=== PATIENT | female | born 1955 | race Caucasian/White ===

== ENCOUNTER 2017-02-02 22:46 | Emergency (ER) | payer BC, MEDICARE ==
[2017-02-02] MEDS ORDERED: PANTOPRAZOLE 40 MG/10 ML VIAL IVP STA (23:07)
[2017-02-02] MEDS ORDERED: ONDANSETRON 4 MG/2 ML VIAL IVP STA (23:07)
[2017-02-02 23:46] LABS: Basophils # (A) 0.1 k/uL (0-0.2); Basophils % (A) 1 %; CH 32.2; CHCM 34.9; Eosinophils # (A) 0.1 k/uL (0-0.7); Eosinophils % (A) 1 %; HCT 39.3 % (34.0-46.0); HDW 2.39; HGB 13.6 gm/dL (11.4-16.0); Luc # (Auto) 0.32; Luc % (Auto) 3; Lymphocytes # (A) 2.2 k/uL (1.0-4.8); Lymphocytes % (A) 21 %; MCH 31.9 pg (25.0-35.0); MCHC 34.5 g/dL (31.0-37.0); MCV 92.5 fL (80.0-100.0); Mean Platelet Volume 7.3; Monocytes # (A) 0.6 k/uL (0-1.0); Monocytes % (A) 5 %; Neutrophils # (A) 7.5 k/uL (1.3-7.7); Neutrophils % (A) 69 %; RBC 4.25 m/uL (3.80-5.40); RDW 12.4 % (11.5-15.5); WBC 10.8 k/uL (3.8-10.6)
[2017-02-02] MEDS ORDERED: HYDROmorphone 1 MG/ML 1 ML SYRINGE IVP STA (23:49)
[2017-02-02 23:51] LABS: Appearance,Urine Cloudy (Clear); Bacteria,Urine Rare /hpf; Bilirubin,Urine Negative (Negative); Glucose,Urine (UA) Negative (Negative); Ketones,Urine Negative (Negative); Leukocyte Esterase,Urine Large (Negative); Mucus,Urine Rare /hpf; Nitrite,Urine Negative (Negative); PH, Urine 5.5 (5.0-8.0); Particle Count 9929; Protein,Urine Trace (Negative); RBC,Urine 8 /hpf (0-5); Squamous Epithelial Cell,Urine 9 /hpf (0-4); UA Billing (MACRO vs. MICRO) MICRO; Urobilinogen,Urine <2.0 mg/dL (<2.0); WBC,Urine 14 /hpf (0-5)
[2017-02-02 23:56] LABS: ALT 36 U/L (9-52); AST 25 U/L (14-36); Alkaline Phosphatase 79 U/L (38-126); Amylase 128 U/L (30-110); Anion Gap 13 mmol/L; Blood Urea Nitrogen 15 mg/dL (7-17); Calcium 9.7 mg/dL (8.4-10.2); Carbon Dioxide 21 mmol/L (22-30); Chloride 105 mmol/L (98-107); Glucose 155 mg/dL (74-99); Non-African American GFR(MDRD) >60 (>60 ml/min/1.73 sqM); Potassium 3.3 mmol/L (3.5-5.1); Sodium 139 mmol/L (137-145); Total Bilirubin 0.5 mg/dL (0.2-1.3); Total Protein 6.8 g/dL (6.3-8.2)
[2017-02-03] MEDS ORDERED: METOCLOPRAMIDE 5 MG/ML 2 ML VIAL IVP STA (00:09)
[2017-02-03] MEDS ORDERED: diphenhydrAMINE 50 MG/ML 1 ML VIAL IVP STA (00:09)
[2017-02-03] MEDS ORDERED: IOHEXOL 350 MG/ML 25 ML BOTTLE (ORAL USE) PO PRN (00:29)
[2017-02-03] MEDS ORDERED: RX INFO: IV CONTRAST WAS GIVEN 1 EACH MISC MISCELLANE PRN (00:29)
--- NOTE | 2017-02-03 00:33 | ED ---
Abdominal Pain HPI - General Chief Complaint: Abdominal Pain Stated Complaint: NVD-Post Op Time Seen by Provider: 02/02/17 23:02 Source: patient, RN notes reviewed, old records reviewed Mode of arrival: wheelchair Limitations: no limitations - History of Present Illness Initial Comments: This is a 61-year-old female presenting to the emergency department with chief complaint of epigastric abdominal pain. Patient reports that she ate today feels like she to much and that is what caused her pain. She reports that she' s had vomiting since 2:30 this afternoon and a few episodes of diarrhea. She reports that she had the hiatal hernia surgery on January 21 by a physician in [facility]. Patient reports that she was healing well afterwards. Patient states that the pain will occasionally radiate to her back. Denies any recent fever or chills. Patient states that the pain is unbearable and radiates from her epigastric region to her lower back. - Related Data Home Medications Medication Instructions Recorded Confirmed Escitalopram Oxalate [Lexapro] 20 mg PO DAILY 02/02/17 02/02/17 Levothyroxine Sodium [Synthroid] 75 mcg PO DAILY 02/02/17 02/02/17 Omeprazole [PriLOSEC] 20 mg PO DAILY 02/02/17 02/02/17 Triamterene-Hctz 37.5-25Mg 1 cap PO DAILY 02/02/17 02/02/17 [Dyazide 37.5-25 Capsule] Previous Rx's Medication Instructions Recorded Nitrofurantoin Monohyd/M-Cryst 100 mg PO Q12HR #14 cap 02/03/17 [Macrobid] Ondansetron Odt [Zofran Odt] 4 mg PO Q8HR PRN #12 tab 02/03/17 Allergies Allergy/AdvReac Type Severity Reaction Status Date / Time codeine AdvReac Nausea & Verified 02/02/17 23:10 Vomiting Review of Systems ROS Statement: Those systems with pertinent positive or pertinent negative responses have been documented in the HPI. ROS Other: All systems not noted in ROS Statement are negative. Past Medical History Past Medical History: Hypertension Additional Past Medical History / Comment(s): hypothyroidism. History of Any Multi-Drug Resistant Organisms: None Reported Additional Past Surgical History / Comment(s): hiatal hernia, Past Psychological History: Anxiety Smoking Status: Former smoker Past Alcohol Use History: None Reported Past Drug Use History: Marijuana General Exam - General Exam Comments Initial Comments: This is a 61-year-old female. Patient is actively vomiting and dry heaving. Limitations: no limitations General appearance: alert, in no apparent distress Head exam: Present: atraumatic, normocephalic, normal inspection Eye exam: Present: normal appearance, PERRL, EOMI. Absent: scleral icterus, conjunctival injection, periorbital swelling ENT exam: Present: normal exam, mucous membranes moist Neck exam: Present: normal inspection. Absent: tenderness, meningismus, lymphadenopathy Respiratory exam: Present: normal lung sounds bilaterally. Absent: respiratory distress, wheezes, rales, rhonchi, stridor Cardiovascular Exam: Present: regular rate, normal rhythm, normal heart sounds. Absent: systolic murmur, diastolic murmur, rubs, gallop, clicks GI/Abdominal exam: Present: soft, tenderness ( is epigastric tenderness.), normal bowel sounds. Absent: distended, guarding, rebound, rigid Extremities exam: Present: normal inspection, full ROM, normal capillary refill. Absent: tenderness, pedal edema, joint swelling, calf tenderness Back exam: Present: normal inspection Neurological exam: Present: alert, oriented X3, CN II-XII intact Psychiatric exam: Present: normal affect, normal mood Skin exam: Present: warm, dry, intact, normal color. Absent: rash Course Vital Signs 02/02/17 02/03/17 02/03/17 22:56 01:41 02:33 Temperature 98.9 F 97.7 F 97.1 F L Pulse Rate 73 63 61 Respiratory 16 18 18 Rate Blood Pressure 183/80 135/65 127/62 O2 Sat by Pulse 97 95 95 Oximetry 02/03/17 03:25 Temperature 97.2 F L Pulse Rate 95 Respiratory 18 Rate Blood Pressure 127/61 O2 Sat by Pulse 96 Oximetry Medical Decision Making - Medical Decision Making This is a 61-year-old female presenting to the emergency department with chief complaint of epigastric abdominal pain. Patient reports that she ate today feels like she to much and that is what caused her pain. She reports that she' s had vomiting since 2:30 this afternoon and a few episodes of diarrhea. She reports that she had the hiatal hernia surgery on January 21 by a physician in [facility]. Patient reports that she was healing well afterwards. Patient states that the pain will occasionally radiate to her back. Denies any recent fever or chills. Patient states that the pain is unbearable and radiates from her epigastric region to her lower back. Patient responded well to nausea medication and pain medication. Lab work shows mild UTI with WBC, and RBC, and leukocyte esterase. Culture will be obtained, patient started on macrobid. PAtient Xray shows no acute process. Patient labs show mild hypokalemia, patient Given KCL replacement. PAtient CT Brain shows dilated stomack entering doudenum. There is constrast throughout entire bowel, PAtient did tolerate PO constrast. No sign of perforation, or abnomrmal surgical procedure. pPatient CT and case discussed with , CT possible SMA syndrome. Patient was reevaluated and resting comfortably, comitnig subsided. PAtient reports that she wants to go home. Patient will be dsicharged with Zofran and advised to follow up with PCP and surgeon form [place] if symptoms perist. PAtient agrees to treatment plan and will comply. - Lab Data Result diagrams: 02/02/17 23:32 02/02/17 23:32 Lab Results 02/02/17 02/02/17 02/02/17 Range/Units 23:32 23:32 23:32 WBC 10.8 H (3.8-10.6) k/uL RBC 4.25 (3.80-5.40) m/uL Hgb 13.6 (11.4-16.0) gm/dL Hct 39.3 (34.0-46.0) % MCV 92.5 (80.0-100.0) fL MCH 31.9 (25.0-35.0) pg MCHC 34.5 (31.0-37.0) g/dL RDW 12.4 (11.5-15.5) % Plt Count 259 (150-450) k/uL Neutrophils % 69 % Lymphocytes % 21 % Monocytes % 5 % Eosinophils % 1 % Basophils % 1 % Neutrophils # 7.5 (1.3-7.7) k/uL Lymphocytes # 2.2 (1.0-4.8) k/uL Monocytes # 0.6 (0-1.0) k/uL Eosinophils # 0.1 (0-0.7) k/uL Basophils # 0.1 (0-0.2) k/uL Sodium 139 (137-145) mmol/L Potassium 3.3 L (3.5-5.1) mmol/L Chloride 105 (98-107) mmol/L Carbon Dioxide 21 L (22-30) mmol/L Anion Gap 13 mmol/L BUN 15 (7-17) mg/dL Creatinine 0.80 (0.52-1.04) mg/dL Est GFR (MDRD) Af Amer >60 (>60 ml/min/1.73 sqM) Est GFR (MDRD) Non-Af >60 (>60 ml/min/1.73 sqM) Glucose 155 H (74-99) mg/dL Calcium 9.7 (8.4-10.2) mg/dL Total Bilirubin 0.5 (0.2-1.3) mg/dL AST 25 (14-36) U/L ALT 36 (9-52) U/L Alkaline Phosphatase 79 (38-126) U/L Total Protein 6.8 (6.3-8.2) g/dL Albumin 4.2 (3.5-5.0) g/dL Amylase 128 H (30-110) U/L Lipase 488 H (23-300) U/L Urine Color Yellow Urine Appearance Cloudy H (Clear) Urine pH 5.5 (5.0-8.0) Ur Specific [place] 1.020 (1.001-1.035) Urine Protein Trace H (Negative) Urine Glucose (UA) Negative (Negative) Urine Ketones Negative (Negative) Urine Blood Moderate H (Negative) Urine Nitrite Negative (Negative) Urine Bilirubin Negative (Negative) Urine Urobilinogen <2.0 (<2.0) mg/dL Ur Leukocyte Esterase Large H (Negative) Urine RBC 8 H (0-5) /hpf Urine WBC 14 H (0-5) /hpf Ur Squamous Epith Cells 9 H (0-4) /hpf Urine Bacteria Rare H (None) /hpf Urine Mucus Rare H (None) /hpf - Radiology Data Radiology results: report reviewed Dilated Gastric region into duodenum, suggest SMA syndrome. Disposition Clinical Impression: Vomiting, Diarrhea, UTI (urinary tract infection) Disposition: HOME SELF-CARE Condition: Good Instructions: Urinary Tract Infection in Women (ED), Acute Nausea and Vomiting (ED) Additional Instructions: Patient advised to follow-up with her primary care provider. Take nausea medication as directed. Return to the emergency department if any alarming signs or symptoms occur. Prescriptions: Nitrofurantoin Monohyd/M-Cryst [Macrobid] 100 mg PO Q12HR #14 cap Ondansetron Odt [Zofran Odt] 4 mg PO Q8HR PRN #12 tab PRN Reason: Nausea Referrals: Nonstaff,Physician [Primary Care Provider] - 1-2 days Time of Disposition: 03:30
--- NOTE | 2017-02-03 00:45 | XR ---
INDICATION: Abdominal pain COMPARISON: None. FINDINGS: Upright AP views of the abdomen are provided. There is gaseous distention of stomach and several small bowel loops. Gas is visualized in the colon. No evidence of free air. No evidence of acute osseous abnormality. IMPRESSION: Overall bowel gas pattern more suggestive of ileus/enteritis than bowel obstruction. No evidence of free air.
[2017-02-03] MEDS ORDERED: POTASSIUM CHLORIDE ER 10 MEQ TAB.ER.PRT PO STA (01:28)
[2017-02-03 01:41] VITALS: RESP 18
--- NOTE | 2017-02-03 03:14 | CT ---
INDICATION: Abdominal pain at hiatal hernia incision site. TECHNIQUE: Helical CT acquisition of the abdomen and pelvis was performed following the administration of 100 mL Omnipaque 300 IV contrast. Oral contrast was also administered. Limited delayed postcontrast image acquisition through the kidneys was also performed. Sagittal and coronal reformatted images are available. DOSIMETRY: CTDIvol 15.60 mGy; DLP 551.10 mGy-cm. This CT exam was performed using one or more of the following dose reduction techniques: automated exposure control, adjustment of the mA and/or kV according to patient size, and/or use of iterative reconstruction technique. COMPARISON: KUB 02/03/17 FINDINGS: There is bibasilar subsegmental atelectasis. There are postsurgical changes at the gastroesophageal junction. The liver, gallbladder, spleen, pancreas, and adrenal glands are unremarkable. The kidneys enhance symmetrically. There is no hydronephrosis or perinephric stranding. There is aortoiliac atherosclerosis without aneurysm. There is no adenopathy. Contrast has reached the mid small bowel at the time of imaging. There is marked gastric distention. There is mildly dilated proximal small bowel. The ileum is decompressed, but no abrupt transition point is identified. There is disproportionate distention of the stomach and duodenum with narrowing of the duodenum as it crosses between the aorta and SMA, raising the possibility of SMA syndrome. There is gas within the right colon and transverse colon. There is no pneumoperitoneum or free fluid. The appendix is not identified. Status post hysterectomy. Urinary bladder is unremarkable. There are no acute osseous findings. IMPRESSION: 1. Marked gastric and duodenal distention with narrowing of the duodenum as it traverses the aorta-SMA interval, raising the possibility of SMA syndrome. There is mild dilatation of jejunal loops with decompressed ileum but no abrupt transition point to suggest more distal small bowel obstruction. Nonspecific gastroenteritis is a possibility.
[2017-02-03 03:26] VITALS: BP 127/61; PULSE 95; TEMP 97.2
[2017-02-03] MEDS ORDERED: ONDANSETRON 4 MG ODT STARTER PACK 2 TAB BTL PO STA (03:42)
== END 2017-02-03 03:46 | disposition home or self-care (01) ==
LOC: EC 22:46
DX: N39.0 Urinary tract infection, site not specified (principal); R11.10 Vomiting, unspecified; R19.7 Diarrhea, unspecified; R10.13 Epigastric pain; E87.6 Hypokalemia; K31.89 Other diseases of stomach and duodenum; I10 Essential (primary) hypertension; E03.9 Hypothyroidism, unspecified; F41.9 Anxiety disorder, unspecified; Z87.891 Personal history of nicotine dependence; Z79.899 Other long term (current) drug therapy; Z88.5 Allergy status to narcotic agent; Z98.890 Other specified postprocedural states
CPT/HCPCS: 36415; 80053; 82150; 83690; 85025; 81001; 87086; 74000; 74177; 99285; 96374; 96375 ×4; J1200; J2765; J2405; J1170; Q9967; S0119; C9113

== ENCOUNTER 2017-02-04 11:44 | Emergency (ER) | payer MEDICARE ==
[2017-02-04] MEDS ORDERED: HYDROmorphone 1 MG/ML 1 ML SYRINGE IVP STA (12:07)
[2017-02-04] MEDS ORDERED: ONDANSETRON 4 MG/2 ML VIAL IVP STA (12:07)
[2017-02-04] MEDS ORDERED: SODIUM CHLORIDE 0.9% 1,000 ML IV STA (12:07)
--- NOTE | 2017-02-04 12:27 | ED ---
General Adult HPI - General Chief complaint: Abdominal Pain Stated complaint: chest pain,vomiting Time Seen by Provider: 02/04/17 11:53 Source: patient, RN notes reviewed Mode of arrival: ambulatory Limitations: no limitations - History of Present Illness Initial comments: Patient 61-year-old female who presents emergency room today status post hiatal hernia repair 2 weeks, who presents emergency room today with a chief complaint of increased abdominal pain with symptoms of nausea vomiting. She has been she was recently seen just 2 days ago for similar symptoms diagnosed with urinary tract infection. She states that she tried eating eggs this morning so she did take her antibiotic. States it made her feel sick nauseous and she began having vomiting. States had increased pain to the abdomen. Patient currently rates pain 10/10 located in the middle of the abdomen. She denies any other complaints or symptoms at this time. - Related Data Home Medications Medication Instructions Recorded Confirmed Escitalopram Oxalate [Lexapro] 20 mg PO DAILY 02/02/17 02/04/17 Levothyroxine Sodium [Synthroid] 75 mcg PO DAILY 02/02/17 02/04/17 Omeprazole [PriLOSEC] 20 mg PO DAILY 02/02/17 02/04/17 Triamterene-Hctz 37.5-25Mg 1 cap PO DAILY 02/02/17 02/04/17 [Dyazide 37.5-25 Capsule] Allergies Allergy/AdvReac Type Severity Reaction Status Date / Time codeine AdvReac Nausea & Verified 02/04/17 12:06 Vomiting Review of Systems ROS Statement: Those systems with pertinent positive or pertinent negative responses have been documented in the HPI. ROS Other: All systems not noted in ROS Statement are negative. Past Medical History Past Medical History: Hypertension Additional Past Medical History / Comment(s): hypothyroidism. History of Any Multi-Drug Resistant Organisms: None Reported Additional Past Surgical History / Comment(s): hiatal hernia esophagus tightening Past Psychological History: Anxiety Smoking Status: Former smoker Past Alcohol Use History: None Reported Past Drug Use History: Marijuana General Exam - General Exam Comments Initial Comments: General: The patient is awake and alert, in no distress, and does not appear acutely ill. Eye: Pupils are equal, round and reactive to light, extra-ocular movements are intact. No nystagmus. There is normal conjunctiva bilaterally. No signs of icterus. Ears, nose, mouth and throat: There are moist mucous membranes and no oral lesions. Neck: The neck is supple, there is no tenderness or JVD. Cardiovascular: There is a regular rate and rhythm. No murmur, rub or gallop is appreciated. Respiratory: Lungs are clear to auscultation, respirations are non-labored, breath sounds are equal. No wheezes, stridor, rales, or rhonchi. Gastrointestinal: Patient has normal appearance. Normal bowel sounds. Abdomen soft on palpation. Patient does have mild tenderness in the middle of the abdomen above the umbilicus. No rebound tenderness no guarding. No CVA tenderness. Musculoskeletal: Normal ROM, no tenderness. Strength 5/5. Sensation intact. Pulses equal bilaterally 2+. Neurological: A&O x 3. CN II-XII intact, There are no obvious motor or sensory deficits. Coordination appears grossly intact. Speech is normal. Skin: Skin is warm and dry and no rashes or lesions are noted. Psychiatric: Cooperative, appropriate mood & affect, normal judgment. Limitations: no limitations Course Vital Signs 02/04/17 02/04/17 02/04/17 11:46 12:51 14:02 Temperature 99.4 F 99.3 F Pulse Rate 80 68 70 Respiratory 22 16 18 Rate Blood Pressure 209/108 185/91 149/65 O2 Sat by Pulse 98 96 98 Oximetry 02/04/17 14:04 Temperature 98.3 F Pulse Rate 60 Respiratory 16 Rate Blood Pressure 124/56 O2 Sat by Pulse 96 Oximetry Medical Decision Making - Medical Decision Making Case discussed in detail with attending physician Dr. Robles. Patient's previous visit she did have a CT of the abdomen which shows 1. Marked gastric and duodenal distention with narrowing of one, at its transverses the aorta SMA interval, raising the possibility of an some a syndrome. Patient's ultrasound of the upper right quadrant is negative today. Patient's labs reviewed unremarkable. Patient's feeling much better at this time. States feels comfortable being discharged home to follow her surgeon if she is not from the area. States plans on traveling back home today. Patient advised to follow-up or admitted to the ER if any symptoms increase or worsen. She states understanding and is in agreement. States she does have nausea medication was given to her - Lab Data Result diagrams: 02/04/17 12:25 02/04/17 12:25 Lab Results 02/04/17 02/04/17 02/04/17 Range/Units 12:25 12:25 12:25 WBC 8.7 (3.8-10.6) k/uL RBC 4.54 (3.80-5.40) m/uL Hgb 14.1 (11.4-16.0) gm/dL Hct 43.3 (34.0-46.0) % MCV 95.2 (80.0-100.0) fL MCH 31.0 (25.0-35.0) pg MCHC 32.5 (31.0-37.0) g/dL RDW 12.9 (11.5-15.5) % Plt Count 270 (150-450) k/uL Neutrophils % 73 % Lymphocytes % 18 % Monocytes % 5 % Eosinophils % 1 % Basophils % 1 % Neutrophils # 6.3 (1.3-7.7) k/uL Lymphocytes # 1.6 (1.0-4.8) k/uL Monocytes # 0.4 (0-1.0) k/uL Eosinophils # 0.1 (0-0.7) k/uL Basophils # 0.1 (0-0.2) k/uL Sodium 139 (137-145) mmol/L Potassium 4.1 (3.5-5.1) mmol/L Chloride 104 (98-107) mmol/L Carbon Dioxide 23 (22-30) mmol/L Anion Gap 12 mmol/L BUN 11 (7-17) mg/dL Creatinine 0.70 (0.52-1.04) mg/dL Est GFR (MDRD) Af Amer >60 (>60 ml/min/1.73 sqM) Est GFR (MDRD) Non-Af >60 (>60 ml/min/1.73 sqM) Glucose 106 H (74-99) mg/dL Plasma Lactic Acid Jb 1.2 (0.7-2.0) mmol/L Calcium 10.0 (8.4-10.2) mg/dL Total Bilirubin 0.8 (0.2-1.3) mg/dL AST 27 (14-36) U/L ALT 31 (9-52) U/L Alkaline Phosphatase 82 (38-126) U/L Total Protein 7.2 (6.3-8.2) g/dL Albumin 4.5 (3.5-5.0) g/dL Amylase 57 (30-110) U/L Lipase 50 (23-300) U/L Urine Color Urine Appearance (Clear) Urine pH (5.0-8.0) Ur Specific [place] (1.001-1.035) Urine Protein (Negative) Urine Glucose (UA) (Negative) Urine Blood (Negative) Urine Nitrite (Negative) Urine Bilirubin (Negative) Urine Urobilinogen (<2.0) mg/dL Ur Leukocyte Esterase (Negative) Urine RBC (0-5) /hpf Urine WBC (0-5) /hpf Ur Squamous Epith Cells (0-4) /hpf Urine Bacteria (None) /hpf Urine Mucus (None) /hpf 02/04/17 Range/Units 13:50 WBC (3.8-10.6) k/uL RBC (3.80-5.40) m/uL Hgb (11.4-16.0) gm/dL Hct (34.0-46.0) % MCV (80.0-100.0) fL MCH (25.0-35.0) pg MCHC (31.0-37.0) g/dL RDW (11.5-15.5) % Plt Count (150-450) k/uL Neutrophils % % Lymphocytes % % Monocytes % % Eosinophils % % Basophils % % Neutrophils # (1.3-7.7) k/uL Lymphocytes # (1.0-4.8) k/uL Monocytes # (0-1.0) k/uL Eosinophils # (0-0.7) k/uL Basophils # (0-0.2) k/uL Sodium (137-145) mmol/L Potassium (3.5-5.1) mmol/L Chloride (98-107) mmol/L Carbon Dioxide (22-30) mmol/L Anion Gap mmol/L BUN (7-17) mg/dL Creatinine (0.52-1.04) mg/dL Est GFR (MDRD) Af Amer (>60 ml/min/1.73 sqM) Est GFR (MDRD) Non-Af (>60 ml/min/1.73 sqM) Glucose (74-99) mg/dL Plasma Lactic Acid Bj (0.7-2.0) mmol/L Calcium (8.4-10.2) mg/dL Total Bilirubin (0.2-1.3) mg/dL AST (14-36) U/L ALT (9-52) U/L Alkaline Phosphatase (38-126) U/L Total Protein (6.3-8.2) g/dL Albumin (3.5-5.0) g/dL Amylase (30-110) U/L Lipase (23-300) U/L Urine Color Yellow Urine Appearance Clear (Clear) Urine pH 6.0 (5.0-8.0) Ur Specific [place] 1.013 (1.001-1.035) Urine Protein Negative (Negative) Urine Glucose (UA) Negative (Negative) Urine Blood Small H (Negative) Urine Nitrite Negative (Negative) Urine Bilirubin Negative (Negative) Urine Urobilinogen <2.0 (<2.0) mg/dL Ur Leukocyte Esterase Small H (Negative) Urine RBC 4 (0-5) /hpf Urine WBC 2 (0-5) /hpf Ur Squamous Epith Cells 2 (0-4) /hpf Urine Bacteria Occasional H (None) /hpf Urine Mucus Rare H (None) /hpf Disposition Clinical Impression: Nausea & vomiting Disposition: HOME SELF-CARE Condition: Good Instructions: Acute Nausea and Vomiting (ED) Additional Instructions: Please use medication as discussed. Please follow-up with surgeon/family doctor in the next 2 days. Please return to emergency room if the symptoms increase or worsen or for any other concerns. Referrals: Nonstaff,Physician [Primary Care Provider] - 1-2 days Time of Disposition: 14:39
[2017-02-04 13:05] LABS: Basophils # (A) 0.1 k/uL (0-0.2); Basophils % (A) 1 %; CH 31.9; CHCM 33.6; Eosinophils # (A) 0.1 k/uL (0-0.7); Eosinophils % (A) 1 %; HCT 43.3 % (34.0-46.0); HDW 2.27; HGB 14.1 gm/dL (11.4-16.0); Luc # (Auto) 0.17; Luc % (Auto) 2; Lymphocytes # (A) 1.6 k/uL (1.0-4.8); Lymphocytes % (A) 18 %; MCHC 32.5 g/dL (31.0-37.0); MCV 95.2 fL (80.0-100.0); Mean Platelet Volume 7.1; Monocytes # (A) 0.4 k/uL (0-1.0); Monocytes % (A) 5 %; Neutrophils # (A) 6.3 k/uL (1.3-7.7); Neutrophils % (A) 73 %; RBC 4.54 m/uL (3.80-5.40); RDW 12.9 % (11.5-15.5); WBC 8.7 k/uL (3.8-10.6); WBC (Perox) 8.32
[2017-02-04 13:14] LABS: ALT 31 U/L (9-52); AST 27 U/L (14-36); Alkaline Phosphatase 82 U/L (38-126); Amylase 57 U/L (30-110); Anion Gap 12 mmol/L; Blood Urea Nitrogen 11 mg/dL (7-17); Carbon Dioxide 23 mmol/L (22-30); Chloride 104 mmol/L (98-107); Glucose 106 mg/dL (74-99); Non-African American GFR(MDRD) >60 (>60 ml/min/1.73 sqM); Potassium 4.1 mmol/L (3.5-5.1); Sodium 139 mmol/L (137-145); Total Bilirubin 0.8 mg/dL (0.2-1.3); Total Protein 7.2 g/dL (6.3-8.2)
--- NOTE | 2017-02-04 13:36 | XR ---
Abdomen HISTORY: Abdominal pain Frontal view of the abdomen submitted on 2 images and correlated to prior abdomen 02/03/2017, CT abdom en pelvis 02/03/2017 Lung bases show some minimal atelectatic change. There is no pneumoperitoneum or bowel obstruction ev ident. Bone mineralization is stable. Mild spinal curvature, degenerative disc changes in the visuali zed spine. Review of CT findings show some irregularity at the level of the gastroesophageal junction which may be due to patient's prior surgery. IMPRESSION: No acute abnormalities evident. Additional findings above.
--- NOTE | 2017-02-04 13:51 | US ---
EXAMINATION TYPE: US abdomen limited DATE OF EXAM: 02/04/2017 COMPARISON: CT abdomen pelvis 02/03/2017 CLINICAL HISTORY: Pain. Nausea and vomiting EXAM MEASUREMENTS: Liver Length: 13.3 cm Gallbladder Wall: 0.4 cm CBD: 0.3 cm Right Kidney: 10.9 x 4.8 x 5.4 cm Pancreas: Tail obscured by overlying bowel gas, portions visualized wnl Liver: wnl Gallbladder: slightly thickened Evidence for sonographic Garibay's sign: no CBD: wnl Right Kidney: wnl IMPRESSION: Exam is somewhat limited. Gallbladder wall shows borderline thickening.
[2017-02-04 14:05] VITALS: BP 124/56; PULSE 60; RESP 16; TEMP 98.3
[2017-02-04 14:18] LABS: Appearance,Urine Clear (Clear); Bacteria,Urine Occasional /hpf; Bilirubin,Urine Negative (Negative); Glucose,Urine (UA) Negative (Negative); Ketones,Urine 2+ (Negative); Leukocyte Esterase,Urine Small (Negative); Mucus,Urine Rare /hpf; Nitrite,Urine Negative (Negative); Particle Count 4470; Protein,Urine Negative (Negative); RBC,Urine 4 /hpf (0-5); Specific Gravity,Urine 1.013 (1.001-1.035); Squamous Epithelial Cell,Urine 2 /hpf (0-4); UA Billing (MACRO vs. MICRO) MICRO; Urobilinogen,Urine <2.0 mg/dL (<2.0); WBC,Urine 2 /hpf (0-5)
== END 2017-02-04 14:47 | disposition home or self-care (01) ==
LOC: EC 11:44
DX: R10.9 Unspecified abdominal pain (principal); R11.2 Nausea with vomiting, unspecified; I10 Essential (primary) hypertension; E03.9 Hypothyroidism, unspecified; F41.9 Anxiety disorder, unspecified; Z87.891 Personal history of nicotine dependence; Z79.899 Other long term (current) drug therapy; Z88.5 Allergy status to narcotic agent
CPT/HCPCS: 36415; 80053; 82150; 83605; 83690; 85025; 81001; 74000; 76705; 99284; 96374; 96375; 96361 ×2; J2405; J1170